=== PATIENT | female | born 1995 | race Caucasian/White ===

== ENCOUNTER 2019-06-07 00:48 | Emergency (ER) | payer OTHER ==
[~2019-06-07] VITALS: Ht 167.6 cm; Wt 59.0 kg
--- NOTE | 2019-06-07 01:15 | NUR ---
PT BIBSELF FROM HOME C/O LLQ PAIN, PROGRESSIVELY GETTING WORSE. PT DENIES NAUSEA, VOMITTING, DYSURIA. PT AAOX4. RESPIRATIONS EVEN AND UNLABORED. ABLE TO AMBULATE WITH STEADY GAIT. NO ACUTE DISTRESS NOTED AT THIS TIME. WILL CONTINUE TO MONITOR
--- NOTE | 2019-06-07 01:20 | NUR ---
URINE COLLECTED AND SENT TO LAB
[2019-06-07 01:42] LABS: APPEARANCE,URINE Slightly Cloudy (CLEAR); BILIRUBIN,URINE Negative (NEGATIVE); BLOOD, URINE Negative Ery/uL (NEGATIVE); COLOR,URINE Yellow (YELLOW); KETONES,URINE Negative (NEGATIVE); LEUKOCYTE ESTERASE ,URINE Negative (NEGATIVE); NITRITE, URINE Negative (NEGATIVE); PH,URINE 7.5 (5.0-8.0); PROTEIN,URINE Trace mg/dl (NEGATIVE); UGLUCOSE Negative (NEGATIVE); UROBILINOGEN,URINE 0.2 EU/dL (0.2)
--- NOTE | 2019-06-07 01:55 | NUR ---
EXCHANGE SPECIALIST TO US AT BEDSIDE
--- NOTE | 2019-06-07 02:14 | NUR ---
Patient discharged to home in stable condition. Written and verbal after care instructions given. Patient verbalizes understanding of instruction.Pt ambulatory with a steady gait
[2019-06-07 02:15] VITALS: BP 118/79
[2019-06-07 02:23] LABS: BACTERIA,URINE Moderate /HPF (None Seen); RBC,URINE 0-2 /HPF (0-2); SQUAMOUS EPITHELIAL CELL,UR Moderate /HPF (None Seen); URINE AMORPHOUS PHOSPHATES Moderate /HPF (None Seen); WBC,URINE 0-2 /HPF (0-3)
== END 2019-06-07 02:15 | disposition home or self-care (01) ==
LOC: ER 00:52
DX: R59.1 Generalized enlarged lymph nodes (principal)
CPT/HCPCS: 76856-TC; 81000-TC; 84703-TC; 87086-TC